=== PATIENT | male | born 1985 | race Caucasian/White ===

== ENCOUNTER 2022-04-11 17:54 | Outpatient (CLI) | payer OTHER, SELFPAY ==
[2022-04-11 12:34] LABS: Hematocrit 46.9 % (42.0-52.0); Hemoglobin 15.4 g/dL (14.0-18.0); Mean Corpuscular HGB Conc 32.8 g/dl (32-36); Mean Corpuscular Hemoglobin 27.8 pg (26-34); Mean Corpuscular Volume 84.7 fl (80-100); Mean Platelet Volume 9.4 fl (7.4-10.4); Platelet Count Result 256 k/mm3 (150-375); Red Blood Count 5.54 M/mm3 (4.6-6.20); White Blood Count 5.7 K/mm3 (4.5-10.0)
[2022-04-11 12:46] LABS: Alanine Aminotransferase 23 U/L (6-50); Albumin Level 4.4 g/dL (3.5-5.1); Alkaline Phosphatase 82 U/L (38-126); Anion Gap 4 mmol/L (8-16); Aspartate Amino Transferase 28 U/L (17-59); Bilirubin,Total 0.6 mg/dL (0.2-1.3); Blood Urea Nitrogen 15 mg/dL (9-20); CRP < 0.5 mg/dL (<1.0); Calcium 8.9 mg/dL (8.4-10.2); Carbon Dioxide 29 mmol/L (22-30); Chloride 104 mmol/L (98-107); Estimated Glomerular Filt Rate > 60; Glucose 94 mg/dL (65-110); Potassium 4.4 mmol/L (3.4-5.0); Sodium 137 mmol/L (137-145)
[2022-04-12 05:37] LABS: Toxigenic C. Diff NEGATIVE (NEGATIVE)
[2022-04-18 21:16] LABS: Calprotectin, Stool <5 mcg/g
[2022-05-11 16:17] LABS: Gliadin AB, IgG <1.0 U/mL (<15.0); TTG IGA AB <1.0 U/mL (<15.0)
== END 2022-04-11 17:55 | disposition home or self-care (01) ==
PROVIDERS: PCP Internal Medicine; Visit Provider Nurse Practitioner
DX: K92.1 Melena (principal); R19.7 Diarrhea, unspecified; R10.9 Unspecified abdominal pain
CPT/HCPCS: 36415; 80053; 83516; 83993; 85027; 86140; 86255; 87045; 87324; 87427; 87493

== ENCOUNTER 2022-06-06 12:01 | Day surgery (SDC) | payer OTHER, SELFPAY ==
[2022-05-08 10:36] VITALS: BMI 31.6
[2022-05-23 09:36] VITALS: BMI 31.8
--- NOTE | 2022-06-06 07:18 | WPDANESEPPF ---
Anes - Initial Pre Proc Eval Procedure: Operation Date: 06/06/22 12:30 Proposed Procedures p Diagnostic Colonoscopy - Remi Geronimo MD Date/Time: 06/06/22 07:18 Surgeon: Remi Geronimo MD Pre Op Diagnosis: Melena, Diarrhea and Abdominal Pain Patient Data Age: 36 Gender: M Height: 1.75 m Weight: 98 kg Allergies Allergy/AdvReac Type Severity Reaction Status Date / Time amoxicillin Allergy Unknown Unknown Verified 06/06/22 12:27 Penicillins Allergy Unknown Unknown Verified 06/06/22 12:27 Home Medications Medication Instructions Recorded Confirmed Type peg 3350-electrolytes 236 240 ml PO Q10M #4,000 mL 05/08/22 Rx gram-22.74 gram-6.74 gram-5.86 gram solution (Golytely) Patient hx anesthesia problems: none Family hx anesthesia problems: none Results Review: All pre-operative results and documents have been reviewed as part of the pre-operative evaluation. [facility] Past Medical History Medical History (Updated 04/11/22 @ 11:55 by Astrid العلي APRN) Abdominal pain Diarrhea Hematochezia Tobacco abuse Social History Social History (Updated 04/11/22 @ 10:48 by Linnea Jernigan MA) Smoking status: Former smoker Tobacco type: e-cigarettes/vaping Second hand tobacco smoke exposure: No Alcohol intake: never Substance use: never Substance use type: does not use Living arrangements: with family Spiritual care concerns: No Anes - Eval Final PreProcedure Day of Procedure 06/06/22 07:18 Patient weight: obese Heart: regular rate and rhythm Lungs: clear to auscultation Airway: Mallampati scale class II Neurological: alert and oriented Last oral intake: >/= 8 hours ASA classification: II Emergent: no Anesthetic plan: proceed Anesthesia type and monitoring: general GIVS and standard monitoring Results Review: All pre-operative results and documents have been reviewed as part of the pre-operative evaluation. Informed Consent: The patient's anesthetic plan and its attendant risks and benefits were discussed with the patient/family/POA. Questions were solicited and answers provided to the satisfaction of the patient/family/POA.
[2022-06-06 12:20] VITALS: BP 105/73; PULSE 62; RESP 20; TEMP 36.7; O2SAT 99; BMI 29.8
[2022-06-06] MEDS: LACTATED RINGERS 1,000 ML 150 ML IV CONT (12:44)
--- NOTE | 2022-06-06 13:23 | PM.HPGS ---
History of Present Illness History of Present Illness Consent: Risks, benefits, and alternatives have been discussed and questions answered. Patient agrees to proceed with procedure. Chief complaint: Melena, Diarrhea and Abdominal Pain Narrative: Steffen Mendoza is a 36 year old male with loose stools and small amount of blood, going on for few months, never had colonoscopy. Blood work negative Review of Systems Constitutional: Constitutional: Denies headache(s) and Denies weakness Eyes: Eyes: Denies blurry vision ENT: Reports Normal hearing present, Denies headache(s) and Denies neck pain Cardiovascular: Cardiovascular: Denies chest pain and Denies dyspnea Respiratory: Respiratory: Denies dyspnea Gastrointestinal: Gastrointestinal: Reports no additional gastrointestinal complaints Genitourinary: Genitourinary: Denies dysuria Musculoskeletal: Musculoskeletal: Denies neck pain Integumentary/Breasts: Skin/Breast: Denies dry skin Neurologic: Reports Normal hearing present, Denies headache(s) and Denies weakness Psychiatric: Psychiatric: Denies anxiety Endocrine: Endocrine: Denies change in body appearance Hematologic/Lymphatic: Hematologic/Lymphatic: Denies easy bleeding Allergic/Immunologic: Allergic/Immunologic: Denies urticaria PMFSH Past Medical History Medical History (Updated 04/11/22 @ 11:55 by Astrid العلي, SOLOMON) Abdominal pain Diarrhea Hematochezia Tobacco abuse Social History Social History (Updated 04/11/22 @ 10:48 by Linnea Jernigan MA) Smoking status: Former smoker Tobacco type: e-cigarettes/vaping Second hand tobacco smoke exposure: No Alcohol intake: never Substance use: never Substance use type: does not use Living arrangements: with family Spiritual care concerns: No Meds Home Medications and Allergies Home Medications Medication Instructions Recorded Confirmed Type peg 3350-electrolytes 236 240 ml PO Q10M #4,000 mL 05/08/22 Rx gram-22.74 gram-6.74 gram-5.86 gram solution (Golytely) Allergies Allergy/AdvReac Type Severity Reaction Status Date / Time amoxicillin Allergy Unknown Unknown Verified 06/06/22 12:27 Penicillins Allergy Unknown Unknown Verified 06/06/22 12:27 Vital Signs Vital Signs - 24 hr 06/06/22 12:20 Temperature 98.0 F Pulse Rate 62 Respiratory Rate 20 Blood Pressure 105/73 Pulse Oximetry 99 Oxygen Delivery Room Air Exam Const: General: comfortable and no acute distress HENMT: General nose exam: Normal nares present Eyes: General: appearance normal, both eyes and all related structures Neck: Neck: no JVD Resp: Auscultation: clear to auscultation bilaterally Cardio: Rate: regular rate Rhythm: regular rhythm GI: Inspection: non-distended GI Palp: Yes Soft to palpation Skin: General skin exam: normal color Neuro: General: gait normal Speech: normal speech Extrem: General: normal to inspection Psych: Mental Status: mental status grossly normal Assessment and Plan Assessment and plan (1) Hematochezia: Code(s): K92.1 - Melena Status: Acute Assessment and Plan: will assess with colonoscopy to check if colitis, etc (2) Diarrhea: Code(s): R19.7 - Diarrhea, unspecified Status: Acute
[2022-06-06 13:40] VITALS: BP 87/60; PULSE 71; RESP 16; TEMP 36.7; O2SAT 96
[2022-06-06 13:50] VITALS: BP 101/76; PULSE 68; RESP 20; O2SAT 99
[2022-06-06 14:00] VITALS: BP 105/71; PULSE 64; RESP 20; O2SAT 99
--- NOTE | 2022-06-06 14:13 | WPDANESPN ---
Anes - Prog Note Post-Op Date/Time: 06/06/22 14:13 Cardiovascular status: normal Respiratory status: normal Airway patency: baseline Mental status: baseline Post-Op hydration status: normal Vital Signs: Last Vital Signs Temp 36.7 C 06/06/22 13:40 Pulse 64 06/06/22 14:00 Resp 20 06/06/22 14:00 BP 105/71 06/06/22 14:00 Pulse Ox 99 06/06/22 14:00 O2 Del Method Room Air 06/06/22 14:00 Pain Score (VAS): 0 I/O: Intake & Output 06/05/22 06/06/22 06/06/22 23:59 07:59 15:59 Intake Total 300 Balance 300 Post-procedural complaints: none Patient Feedback: Patient satisfied with anesthetic care. Other Findings: Patient vital signs back to baseline. Patient denies nausea and vomiting. Patient's pain under control. Patient OK for discharge.
== END 2022-06-06 14:06 | disposition home or self-care (01) ==
PROVIDERS: Visit Provider Internal Medicine Gastroenterology
PROC: 0DJD8ZZ Inspection of Lower Intestinal Tract, Via Natural or Artificial Opening Endoscopic (ICD-10-PCS; CPT 45378; principal; 2022-06-06 12:30)
DX: K92.1 Melena (principal); R19.7 Diarrhea, unspecified
CPT/HCPCS: 45380

== ENCOUNTER 2022-06-06 13:00 | Outpatient (NON) | payer OTHER, SELFPAY | END 2022-06-06 13:01 | disposition home or self-care (01) | PROVIDERS: Visit Provider Internal Medicine Gastroenterology | DX: R19.7 Diarrhea, unspecified (principal) | CPT/HCPCS: 88305 ==

== ENCOUNTER → 2023-03-23 15:38 | Outpatient (CLI) | payer BC, SELFPAY ==
--- NOTE | ~2023-03-23 | XR_ITS ---
EXAMINATION: XR shoulder RT min 2V DATE: 03/23/2023 16:05 INDICATION: Right shoulder pain. TECHNIQUE: 4 views of right shoulder were obtained. COMPARISON: None. FINDINGS: Bone alignment is normal. No fracture. There is mild osteoarthritis of glenohumeral joint a nd moderate osteoarthritis of acromioclavicular joint. IMPRESSION: 1. Polyarticular osteoarthritis. Reviewed, dictated and finalized at location E.
== END ==
PROVIDERS: PCP Nurse Practitioner Family; Visit Provider Nurse Practitioner Family
DX: M19.011 Primary osteoarthritis, right shoulder (principal)
CPT/HCPCS: 73030

== ENCOUNTER 2025-10-11 01:27 | Emergency (ER) | payer BC, SELFPAY ==
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
[2025-10-11 02:06] VITALS: BP 136/86; PULSE 79; RESP 20; TEMP 36.8; O2SAT 100
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
== END 2025-10-11 02:38 | disposition home or self-care (01) ==
PROVIDERS: Emergency Provider Student in an Organized Health Care Education/Training Program; PCP Nurse Practitioner Family
DX: S00.03XA Contusion of scalp, initial encounter (principal); Z87.891 Personal history of nicotine dependence; W20.8XXA Other cause of strike by thrown, projected or falling object, initial encounter
CPT/HCPCS: 70450; 99284